=== PATIENT | male | born 1975 | race Two or more races ===

== ENCOUNTER 2023-03-30 10:14 | Emergency (ER) | payer MEDICAID, OTHER ==
[~2023-03-30] VITALS: Ht 182.9 cm; Wt 99.8 kg
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
[2023-03-30] MEDS ORDERED: IBUP-1955 PO (10:44)
--- NOTE | 2023-03-30 10:49 | NUR ---
Patient discharged to home in stable condition. Written and verbal after care instructions given. Patient verbalizes understanding of instruction.
[2023-03-30 10:50] VITALS: BP 149/98
== END 2023-03-30 10:53 | disposition home or self-care (01) ==
LOC: ER 10:18
DX: S02.2XXA Fracture of nasal bones, initial encounter for closed fracture (principal); S00.12XA Contusion of left eyelid and periocular area, initial encounter; W22.8XXA Striking against or struck by other objects, initial encounter; Y93.89 Activity, other specified; Y92.89 Other specified places as the place of occurrence of the external cause; Y99.0 Civilian activity done for income or pay